=== PATIENT | female | born 2000 | race Two or more races ===

== ENCOUNTER 2023-08-28 08:03 | Inpatient (IN) | payer MEDICAID, OTHER ==
[~2023-08-28] VITALS: Ht 166 cm; Wt 68.0 kg
[2023-08-28] MEDS ORDERED: LIDOCAINE 2%HCL (LOCAL ANESTH.) INJ 20ML MDV IJ PRN (08:15)
[2023-08-28] MEDS ORDERED: BUTORPHANOL TARTRATE 2 MG/1 ML VIAL IV PRN ×2 (08:15)
[2023-08-28] MEDS: PENICILLIN G POT 5MIL/D5 50ML 50 ML IV ONE (08:49)
[2023-08-28 09:07] LABS: Basophils # (auto) 0.1 10 ^3/uL (0-0.2); Basophils % (auto) 0.4 % (0.0-2.0); Eosinophils # (auto) 0.1 10 ^3/uL (0-0.8); Eosinophils % (auto) 0.4 % (0.0-7.0); Hematocrit 33.5 % (36.0-46.0); Hemoglobin 10.4 g/dL (12.2-16.2); Lymphocytes # (auto) 2.2 10 ^3/uL (0.4-5.4); Lymphocytes % (auto) 14.1 % (10.0-50.0); Mean Corpuscular Hemoglobin 21.8 pg (28.0-32.0); Mean Corpuscular Hgb Conc. 30.9 g/dL (32.0-36.0); Mean Corpuscular Volume 70.4 fL (80.0-100.0); Monocytes # (auto) 1.1 10 ^3/uL (0-1.3); Monocytes % (auto) 7.5 % (0.0-12.0); Neutrophils # (auto) 11.8 10 ^3/uL (1.6-8.6); Neutrophils % (auto) 77.6 % (37.0-80.0); Nucleated Red Blood Cells % 0.2 %; Red Blood Cells 4.76 10^6/uL (4.0-5.20); Red Cell Distribution Width 19.6 % (11.8-14.3); White Blood Cell 15.2 10^3/uL (4.4-10.8)
[2023-08-28 09:21] LABS: INR 0.93 (0.9-1.15); Partial Thromboplastin Time 23.8 SEC (24.5-34.5); Prothrombin Time 9.9 sec (9.3-11.8)
[2023-08-28 09:28] LABS: Alanine Aminotransferase 19 U/L (7-40); Albumin 4.1 g/dL (3.2-4.8); Alkaline Phosphatase 282 U/L (46-116); Anion Gap 12 (5-15); Aspartate Aminotransferase 28 U/L (13-40); BUN/Creatinine Ratio 9.6 (10.0-20.0); Blood Urea Nitrogen 7 mg/dL (9-23); Calcium 9.8 mg/dL (8.7-10.4); Carbon Dioxide 20 mmol/L (20-30); Chloride 106 mmol/L (98-107); Glucose 80 mg/dL (74-106); Potassium 4.2 mmol/L (3.5-5.1); Sodium 138 mmol/L (136-145)
[2023-08-28 09:29] LABS: Bilirubin, Total 0.6 mg/dL (0.2-1.0); Total Protein 7.3 g/dL (5.7-8.2)
[2023-08-28] MEDS ORDERED: ONDANSETRON HCL 4 MG/2 ML VIAL IV PRN (10:00)
[2023-08-28] MEDS: ePHEDrine SULFATE 50 MG/ML AMP IV ONE (10:15)
[2023-08-28] MEDS: ROPIVACAINE HCL 200 ML ONE (11:20)
[2023-08-28] MEDS: LACTATED RINGER'S 1,000 ML IV SCH (11:20)
[2023-08-28] MEDS: LACTATED RINGER'S 1,000 ML IV ONE (11:21)
[2023-08-28] MEDS ORDERED: PENICILLIN G POTASSIUM 2,500,000 UNITS in D5W 5% 50 ML IV SCH (12:15)
[2023-08-28] MEDS ORDERED: MINERAL OIL TOPICAL 10ml TOP ONE (13:51)
[2023-08-28] MEDS ORDERED: ACETAMINOPHEN 325 MG TAB PO PRN (15:45)
[2023-08-28] MEDS: LACT. RINGERS/OXYTOCIN 20UNITS 500 ML IV ONE ×2 (17:48→17:49)
[2023-08-28] MEDS: PHISODERM TOP SOLN 240ML BTL TOP PRN (17:49)
[2023-08-28] MEDS: DERMOPLAST 60ML BOTTLE TOP PRN (17:49)
[2023-08-28] MEDS: WITCH HAZEL-GLYCERIN PAD TOP PRN (17:50)
[2023-08-28 19:10] VITALS: BP 112/74; PULSE 94; RESP 16; TEMP 98.9; O2SAT 99
[2023-08-28] MEDS: IBUPROFEN 600 MG TAB PO PRN (22:13)
[2023-08-28] MEDS: DOCUSATE SOD 100 MG CAP PO SCH (22:13)
[2023-08-28 23:00] VITALS: BP 112/69; PULSE 96; RESP 18; TEMP 99; O2SAT 99
[2023-08-29] MEDS ORDERED: IBU600T PO (01:43)
[2023-08-29] MEDS ORDERED: FER325T PO (01:43)
[2023-08-29] MEDS ORDERED: DOCU-265 PO (01:43)
[2023-08-29] MEDS ORDERED: PREN-96 PO (01:43)
[2023-08-29] MEDS ORDERED: ASCO500T11 PO (01:43)
[2023-08-29 02:40] VITALS: BP 100/62; PULSE 88; RESP 16; TEMP 98.6; O2SAT 99
[2023-08-29 07:06] LABS: RPR Non Reactive (Non Reactive)
[2023-08-29 07:30] VITALS: BP 111/66; PULSE 81; RESP 17; TEMP 98.3; O2SAT 98
[2023-08-29 09:22] LABS: Basophils # (auto) 0.1 10 ^3/uL (0-0.2); Basophils % (auto) 0.4 % (0.0-2.0); Eosinophils # (auto) 0.1 10 ^3/uL (0-0.8); Eosinophils % (auto) 0.8 % (0.0-7.0); Hematocrit 26.9 % (36.0-46.0); Hemoglobin 8.4 g/dL (12.2-16.2); Lymphocytes # (auto) 2.4 10 ^3/uL (0.4-5.4); Lymphocytes % (auto) 16.2 % (10.0-50.0); Mean Corpuscular Hemoglobin 22.1 pg (28.0-32.0); Mean Corpuscular Hgb Conc. 31.1 g/dL (32.0-36.0); Mean Corpuscular Volume 71.1 fL (80.0-100.0); Monocytes # (auto) 0.9 10 ^3/uL (0-1.3); Monocytes % (auto) 6.1 % (0.0-12.0); Neutrophils # (auto) 11.4 10 ^3/uL (1.6-8.6); Neutrophils % (auto) 76.5 % (37.0-80.0); Red Blood Cells 3.78 10^6/uL (4.0-5.20); Red Cell Distribution Width 19.6 % (11.8-14.3); White Blood Cell 14.8 10^3/uL (4.4-10.8)
[2023-08-29] MEDS ORDERED: PRENATAL VITAMIN TAB PO SCH (10:00)
[2023-08-29 10:43] VITALS: BP 112/66; PULSE 91; RESP 16; TEMP 98.4; O2SAT 98
[2023-08-29 15:00] VITALS: BP 109/68; PULSE 92; RESP 18; TEMP 98; O2SAT 98
[2023-09-02 19:06] LABS: Treponema pallidum Ab (FTA-Ab) Non Reactive (Non Reactive)
== END 2023-08-29 16:40 | disposition home or self-care (01) | DRG 560 ==
LOC: LDRP 08:03 → OBSVTOIN 08:04 → LDRP 08:23
PROVIDERS: ADMIT Obstetrics & Gynecology; ATTEND Obstetrics & Gynecology
PROC: 10E0XZZ Delivery of Products of Conception, External Approach (ICD-10-PCS; principal; 2023-08-28)
PROC: 3E0DXGC Introduction of Other Therapeutic Substance into Mouth and Pharynx, External Approach (ICD-10-PCS; 2023-08-28)
PROC: 0UQMXZZ Repair Vulva, External Approach (ICD-10-PCS; 2023-08-28)
PROC: 3E0R3BZ Introduction of Anesthetic Agent into Spinal Canal, Percutaneous Approach (ICD-10-PCS; 2023-08-28)
PROC: 00HU33Z Insertion of Infusion Device into Spinal Canal, Percutaneous Approach (ICD-10-PCS; 2023-08-28)
DX: O77.0 Labor and delivery complicated by meconium in amniotic fluid (principal); Z37.0 Single live birth; D50.9 Iron deficiency anemia, unspecified; O66.0 Obstructed labor due to shoulder dystocia; O99.02 Anemia complicating childbirth; O70.0 First degree perineal laceration during delivery; Z3A.39 39 weeks gestation of pregnancy
CPT/HCPCS: 36415; 59025; 59409; 62282; 80053; 81002; 85025; 85610; 85730; 86592; 86850; 86900; 86901; 94760; 94762; 96360; 96361; 96365; 96366; G0378; J2540; J2590; J7060